=== PATIENT | male | born 1965 | race Caucasian/White ===

== ENCOUNTER 2016-09-25 11:32 | Emergency (ER) | payer MEDICAID, MEDICARE, OTHER ==
[~2016-09-25] VITALS: Ht 182.9 cm; Wt 73.0 kg
[~2016-09-25 11:32] MED LIST: IBUP800T23 PO; METH500T3 PO
[2016-09-25 11:33] VITALS: BP 116/60; PULSE 78; RESP 20; TEMP 98.7; O2SAT 97
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
[2016-09-25] MEDS ORDERED: oxyCODONE/ACETAMINOPHEN 7.5 MG/325 MG TAB PO ONE (12:00)
--- NOTE | 2016-09-25 12:53 | RADRPT ---
EXAM DATE/TIME: 09/25/2016 12:08 [facility] COMPARISON: No previous studies available for comparison. INDICATIONS : Trauma MEDICAL HISTORY : SURGICAL HISTORY : ENCOUNTER: ACUITY: PAIN SCORE: LOCATION: FINDINGS: Soft tissue swelling overlying the lateral malleolus. Nondisplaced fracture involving the base of the fifth metatarsal which is partially imaged on this exam. Remaining osseous structures appear intact without evidence for acute bony fracture. The talar dome is intact. CONCLUSION: 1. Soft tissue swelling overlying the lateral malleolus without underlying acute bony fracture. 2. Fracture of the base of the fifth left metatarsal. Santos Fish MD on September 25, 2016 at 12:48 Board Certified Radiologist. This report was verified electronically.
--- NOTE | 2016-09-25 12:55 | RADRPT ---
EXAM DATE/TIME: 09/25/2016 12:10 [facility] COMPARISON: No previous studies available for comparison. INDICATIONS : Rolled left foot and ankle, pain and swelling MEDICAL HISTORY : None. SURGICAL HISTORY : None. ENCOUNTER: Initial ACUITY: 2 days PAIN SCORE: 8/10 LOCATION: Left foot FINDINGS: There is a nondisplaced oblique fracture of the base of the left fifth metatarsal. Overlying soft tis elfego swelling is noted. Remaining osseous structures are intact. Joint spaces are maintained. CONCLUSION: 1. Nondisplaced oblique fracture of the base of the left fifth metatarsal. Santos Fish MD on September 25, 2016 at 12:52 Board Certified Radiologist. This report was verified electronically.
[2016-09-25] MEDS ORDERED: IBUP800T23 PO (13:08)
[2016-09-25] MEDS ORDERED: TRAM50TA PO (13:11)
== END 2016-09-25 13:55 | disposition home or self-care (01) ==
LOC: NEPD 11:32
DX: S92.302A Fracture of unspecified metatarsal bone(s), left foot, initial encounter for closed fracture (principal); I10 Essential (primary) hypertension; F17.200 Nicotine dependence, unspecified, uncomplicated; Z86.79 Personal history of other diseases of the circulatory system; Z86.59 Personal history of other mental and behavioral disorders; Z86.14 Personal history of Methicillin resistant Staphylococcus aureus infection; X58.XXXA Exposure to other specified factors, initial encounter
CPT/HCPCS: 29515; 73610; 73630; 99283; E0113

== ENCOUNTER 2017-03-28 18:39 | Emergency (ER) | payer MEDICAID ==
[~2017-03-28] VITALS: Ht 182.9 cm; Wt 74.0 kg
[2017-03-28 18:44] VITALS: BP 118/62; PULSE 70; RESP 19; TEMP 98.7; O2SAT 99
[2017-03-28 18:47] VITALS: BP 118/62; PULSE 77; RESP 19; TEMP 98.7; O2SAT 100
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
[2017-03-28 19:36] VITALS: BP 129/59; PULSE 82; RESP 18; O2SAT 99
--- NOTE | 2017-03-28 21:04 | PD ---
Physical Exam Date Seen by Provider: Mar 28, 2017 Narrative Patient presents with a left knee injury. He has a bad right knee which is scheduled for replacement in April. He states that his right knee locked up causing him to fall and injure his left knee. Data Data Last Documented VS Vital Signs Date Time Temp Pulse Resp B/P (MAP) Pulse Ox O2 Delivery O2 Flow Rate FiO2 03/28/17 19:36 82 18 129/59 (82) 99 Room Air 03/28/17 18:47 98.7 Orders Orders Knee, Complete (4vws) (03/28/17 ) Ice/Cold Pack (03/28/17 19:25) MDM Supervised Visit with TANYA: Yes Narrative Course I, Dr. Collazo, have reviewed the advance practice practitioner's documentation and am in agreement, met with the patient face to face, made the diagnosis, and the medical decision making was done by me. *My assessment and Findings: He has left knee tenderness. He is distally neurovascularly intact. X-ray to my interpretation is negative for fracture. We are awaiting the radiologist's official reading. Please see Flaco Yancey PA-C's note for results of laboratory and radiographic evaluation, ED course, final diagnosis and disposition Scripts No Active Prescriptions or Reported Meds Azalea Collazo MD Mar 28, 2017 21:04
--- NOTE | 2017-03-28 21:05 | RADRPT ---
EXAM DATE/TIME: 03/28/2017 19:57 [facility] COMPARISON: No previous studies available for comparison. INDICATIONS : Pain. MEDICAL HISTORY : None. SURGICAL HISTORY : None. ENCOUNTER: Initial ACUITY: 1 day PAIN SCORE: 8/10 LOCATION: Left Knee. FINDINGS: 4 views of left knee. Moderate-sized joint effusion. No evidence of joint narrowing. Bone alignment w ithin normal limits. No evidence of fracture. Small medial compartment osteophytes. Soft tissue swel ling anterior to the patellar tendon. CONCLUSION: Moderate-sized joint effusion. Anterior soft tissue edema. Geoff Velasquez MD on March 28, 2017 at 21:02 Board Certified Radiologist. This report was verified electronically.
== END 2017-03-28 22:14 | disposition home or self-care (01) ==
LOC: NEPD 18:39
DX: M23.92 Unspecified internal derangement of left knee (principal); F17.200 Nicotine dependence, unspecified, uncomplicated
CPT/HCPCS: 73564; 99283; E0113; L1830

== ENCOUNTER 2017-08-09 19:25 | Emergency (ER) | payer MEDICARE, MEDICAID ==
[~2017-08-09] VITALS: Ht 175.3 cm; Wt 65.0 kg
[2017-08-09 19:51] VITALS: BP 93/55; PULSE 81; RESP 15; TEMP 98.6; O2SAT 95
[2017-08-09] MEDS ORDERED: CYCL5TAB PO (19:59)
[2017-08-09] MEDS ORDERED: ANTICOAGULANT PO (19:59)
[2017-08-09] MEDS ORDERED: traMADol HCL 50 MG TAB PO ONE (20:00)
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
--- NOTE | 2017-08-09 20:57 | RADRPT ---
EXAM DATE/TIME: 08/09/2017 20:09 [facility] COMPARISON: No previous studies available for comparison. INDICATIONS : Right knee pain. Patient states knee gave out today. MEDICAL HISTORY : None. SURGICAL HISTORY : Total knee replacement, right. ENCOUNTER: Initial ACUITY: 1 day PAIN SCORE: 10/10 LOCATION: Right Knee. FINDINGS: Postoperative right total knee replacement. Normal alignment. No acute bony abnormality. Moderate mg nt effusion. CONCLUSION: 1. Knee replacement. No acute fracture. Small to moderate-sized knee joint effusion. Laci Finn MD on August 09, 2017 at 20:54 Board Certified Radiologist. This report was verified electronically.
[2017-08-09] MEDS ORDERED: IBUP-232 PO (21:01)
== END 2017-08-09 21:40 | disposition home or self-care (01) ==
LOC: NEPD 19:25
DX: M25.461 Effusion, right knee (principal); F32.9 Major depressive disorder, single episode, unspecified; I10 Essential (primary) hypertension; F17.210 Nicotine dependence, cigarettes, uncomplicated; W19.XXXA Unspecified fall, initial encounter; Z96.651 Presence of right artificial knee joint; Z86.73 Personal history of transient ischemic attack (TIA), and cerebral infarction without residual deficits
CPT/HCPCS: 73564; 99283